=== PATIENT | female | born 1965 | race Caucasian/White ===

== ENCOUNTER 2018-08-11 22:22 | Emergency (ER) | payer MEDICAID ==
[~2018-08-11] VITALS: Ht 149.9 cm; Wt 39.5 kg
[2018-08-11 22:41] VITALS: Ht 149.9 cm; Wt 39.5 kg
[2018-08-12 00:31] LABS: UA SPECIFIC GRAVITY 1.015 (1.005-1.035); microscopic required? YES; urine erythrocyte TRACE (NEGATIVE)
[2018-08-12 00:35] LABS: BASOPHIL % 0.3 % (0-2); PLATELET COUNT 162 x10^3mcL (130-400); RED CELL DISTRIBUTION WIDTH 13.1 % (11.5-14.5)
[2018-08-12 00:46] LABS: CALCIUM 8.1 mg/dL (8.5-10.1); CARBON DIOXIDE 22.8 mmol/L (21-32); CHLORIDE SERUM 102 mmol/L (98-107); CREATININE SERUM 0.5 mg/dL (0.6-1.0); GFR1 > 60 mL/min; GLUCOSE SERUM 369 mg/dL (74-106); POTASSIUM SERUM 3.9 mmol/L (3.5-5.1); SODIUM SERUM 135 mmol/L (136-145)
[2018-08-12 00:53] LABS: ALKALINE PHOSPHATASE 136 U/L (46-116); ALT/SGPT 25 U/L (14-59); AST/SGOT 23 U/L (15-37); BILIRUBIN TOTAL 0.82 mg/dL (0.20-1.00); LIPASE 120 IU/L (73-393); TOTAL PROTEIN, SERUM 7.1 g/dL (6.4-8.2)
[2018-08-12 00:57] LABS: ALBUMIN 2.8 g/dL (3.4-5.0)
[2018-08-12 01:35] VITALS: BP 112/69
== END 2018-08-12 01:35 | disposition home or self-care (01) ==
LOC: ED 22:22
PROVIDERS: Emergency Medicine
DX: R73.9 Hyperglycemia, unspecified (principal); N39.0 Urinary tract infection, site not specified
CPT/HCPCS: 36415; J7030